=== PATIENT | female | born 1990 | race African-American/Black ===

== ENCOUNTER 2024-08-31 01:52 | Emergency (ER) | payer OTHER ==
[~2024-08-31] VITALS: Ht 160 cm; Wt 56.7 kg
[2024-08-31] MEDS: predniSONE 10 MG TABLET PO ONE (02:45)
[2024-08-31] MEDS: ALBUTEROL SULFATE 2.5 MG/3 ML NEBU NEB ONE (03:12)
[2024-08-31] MEDS: IPRATROPIUM BROMIDE 0.5 MG/2.5 ML NEBU NEB ONE (03:12)
[2024-08-31 03:15] VITALS: O2SAT 97
[2024-08-31] MEDS ORDERED: ALBUTEROL SULFATE 2.5 MG/3 ML NEBU ONE (03:16)
[2024-08-31] MEDS ORDERED: IPRATROPIUM BROMIDE 0.5 MG/2.5 ML NEBU ONE (03:16)
[2024-08-31 03:25] VITALS: O2SAT 98
[2024-08-31 03:30] VITALS: O2SAT 99
[2024-08-31] MEDS ORDERED: predniSONE 10 MG TABLET ONE (04:07)
[2024-08-31 05:12] VITALS: BP 130/70; TEMP 98.2; O2SAT 99
== END 2024-08-31 05:13 | disposition home or self-care (01) ==
LOC: ER 02:04
DX: J45.909 Unspecified asthma, uncomplicated (principal); B34.9 Viral infection, unspecified; R07.9 Chest pain, unspecified; R94.31 Abnormal electrocardiogram [ECG] [EKG]; Z20.822 Contact with and (suspected) exposure to COVID-19
CPT/HCPCS: 99285; 71045; 87426; 87804 ×2; 94640; 93005; J7512; A4606; A4663; J3590